=== PATIENT | female | born 1955 | race Caucasian/White ===

== ENCOUNTER 2018-11-16 18:42 | Emergency (ER) | payer BC, OTHER ==
[~2018-11-16] VITALS: Ht 160 cm; Wt 99.8 kg
--- NOTE | 2018-11-16 18:55 | NUR ---
[facility] [facility] is notified of dog bite. Officer is being sent.
[2018-11-16] MEDS ORDERED: AUGMENTIN 875 MG TAB (AMOXICILLIN/CLAVULANATE) PO SCH (19:00)
[2018-11-16] MEDS ORDERED: TRAM50TA2 PO (19:10)
[2018-11-16] MEDS ORDERED: AMOX-358 PO (19:10)
[2018-11-16] MEDS ORDERED: HYDROcodone/APAP 10 MG/325 MG (LORTAB) TAB PO ONE (19:15)
[2018-11-16] MEDS ORDERED: TETANUS,DIPTH,PERTUSS P/F (BOOSTRIX) 0.5 ML VIAL IM ONE (19:30)
[2018-11-16 19:33] VITALS: BP 120/76
--- NOTE | 2018-11-16 19:52 | ED General ---
General Chief Complaint: Bite-Animal/Human/Insect Stated Complaint: DOG BITE ON LT ARM Nursing Triage Note: Patient states that she was at the home of another family member. She walked to the back yard and a great molly, owned by the family member, bit the patient on the left arm. Patient has a laceration that is approximately 5cm long on her anterior left arm. Patient went to urgent care and they sent her here. Nursing Sepsis Screen: No Definite Risk Source of Information: Patient History of Present Illness Date Seen by Provider: November 16, 2018 Time Seen by Provider: 16:48 Initial Comments Patient is a 63-year-old right-handed female presents with dog bite/laceration to left forearm. Patient was bit by her great Molly prior to the arrival. There is 4 cm laceration over the extensor surface of distal left forearm. Wound is full-thickness with exposed adipose tissue. No fascia, vessels or tendons are exposed. Bleeding is controlled. There are 2 puncture wounds on the flexor surface of the forearm. There is no loss of motor strength or sensation. Patient was seen at [facility] and referred to the ED for evaluation. The animal is the patient's pet and rabies needs updated. No other acute symptoms or complaints. Patient's does not recall time of her last tetanus booster. Timing/Duration: 1 Hour Severity: Moderate Associated Systoms: Denies Symptoms Allergies and Home Medications Allergies Coded Allergies: No Known Drug Allergies (Unverified , 11/16/18) Home Medications Amoxicillin/Potassium Clav 1 Each Tablet, 1 EACH PO BID Prescribed by: INDIA PEREIRA on 11/16/181909 Tramadol HCl 50 Mg Tablet, 50 MG PO Q6H Prescribed by: INDIA PEREIRA on 11/16/181909 Patient Home Medication List Home Medication List Reviewed: Yes Review of Systems Review of Systems Constitutional: no symptoms reported, see HPI EENTM: see HPI Respiratory: no symptoms reported, see HPI Cardiovascular: no symptoms reported, see HPI Musculoskeletal: other (CHPI) Skin: no symptoms reported Psychiatric/Neurological: No Symptoms Reported Past Ivjadbi-Cgvsfs-Vnszsc Hx Patient Social History Alcohol Use: Denies Use Recreational Drug Use: No Smoking Status: Never a Smoker 2nd Hand Smoke Exposure: No Recent Foreign Travel: No Contact w/Someone Who Travel: No Recent Infectious Disease Expo: No Recent Hopitalizations: No Physical Abuse: No Sexual Abuse: No Mistreated: No Fear: No Immunizations Up To Date Tetanus Booster (TDap): More than 5yrs Seasonal Allergies Seasonal Allergies: No Past Medical History Surgeries: Yes Section Respiratory: No Cardiac: No Neurological: No Genitourinary: No Gastrointestinal: No Musculoskeletal: No Endocrine: No HEENT: No Cancer: No Psychosocial: No Integumentary: No Blood Disorders: No Physical Exam Vital Signs Vital Signs - First Documented 11/16/18 18:50 Temp 97.9 Pulse 67 Resp 20 B/P (MAP) 120/76 (91) Pulse Ox 95 O2 Delivery Room Air Capillary Refill : Less Than 3 Seconds Height, Weight, BMI Height: 5'3.00" Weight: 220lbs. 0oz. 99.762324hq; BMI Method:Stated General Appearance: No Apparent Distress, WD/WN HEENT: PERRL/EOMI, TMs Normal Neck: Full Range of Motion, Normal Inspection Respiratory: Lungs Clear Back: Other Extremity: Other ( 4 cm laceration over the extensor surface of distal left forearm. Wound is full-thickness with exposed adipose tissue. No fascia, vessels or tendons are exposed. Bleeding is controlled. There are 2, 1 cm puncture wounds on the flexor surface of the forearm) Neurologic/Psychiatric: Alert; No Motor Weakness, No Sensory Deficit Procedures/Interventions Wound Location: Upper Extremities Other Wound Location Left forearm laceration, cleansed extensively under tap water. Wound explored, no foreign bodies present. Wound loosely closed with 4 ruperto. Wound bandaged and placed in sling., Wound Length (cm): 4 Staple Repair: Stapler Skin Precise Progress/Results/Core Measures Suspected Sepsis Recent Fever Within 48 Hours: No Infection Criteria Present: None New/Unexplained Altered Menta: No Sepsis Screen: No Definite Risk SIRS Temperature:97.9 Pulse: 67 Respiratory Rate: 20 Blood Pressure 120 /76 Mean: 91 Results/Orders My Orders Orders - INDIA PEREIRA DO Amoxicillin/Clavulanate Tablet (Augmenti (11/16/18 19:00) Hydrocodone/Apap 10/325 Tablet (Lortab 1 (11/16/18 19:15) Dipht,Pertuss(Acell),Tet Adult (Boostrix (11/16/18 19:30) Medications Given in ED Current Medications Medications Dose Ordered Sig/Jessy Route Start Time Stop Time Status Last Admin Dose Admin Acetaminophen/ Hydrocodone Bitart 1 ea ONCE ONCE PO 11/16/18 19:15 11/16/18 19:16 DC 11/16/18 19:08 1 EA Diphtheria/ Tetanus/Acell Pertussis 0.5 ml ONCE ONCE IM 11/16/18 19:30 11/16/18 19:31 DC 11/16/18 19:32 0.5 ML Vital Signs/I&O 11/16/18 11/16/18 18:50 19:33 Temp 97.9 97.9 Pulse 67 67 Resp 20 20 B/P (MAP) 120/76 (91) 120/76 (91) Pulse Ox 95 95 O2 Delivery Room Air Room Air Capillary Refill : Less Than 3 Seconds Blood Pressure Mean: 91 Departure Impression Primary Impression: Dog bite Disposition: 01 HOME, SELF-CARE Condition: Improved Departure-Patient Inst. Decision time for Depature: 19:30 Patient Instructions: Animal Bites (DC) Add. Discharge Instructions: This take ibuprofen for pain and tramadol as needed for additional relief. Complete full course of antibiotics and keep left arm elevated in a sling. Avoid repetitive left arm use and heavy lifting for at least 1 week. Return to the ED in 10 days for staple removal. Return sooner if signs of infection. All discharge instructions reviewed with patient and/or family. Voiced understanding. Scripts Tramadol HCl (Tramadol HCl) 50 Mg Tablet 50 MG PO Q6H, #12 TAB Prov: INDIA PEREIRA DO 11/16/18 Amoxicillin/Potassium Clav (Augmentin 875-125 Tablet) 1 Each Tablet 1 EACH PO BID, #14 TAB 0 Refills Prov: INDIA PEREIRA DO 11/16/18 Work/School Note: Work Release Form Date Seen in the Emergency Department: November 16, 2018 Return to Work: November 19, 2018 INDIA PEREIRA DO November 16, 2018 19:52
== END 2018-11-16 19:33 | disposition home or self-care (01) ==
LOC: ER FS 18:45
DX: S51.852A Open bite of left forearm, initial encounter (principal); Z98.890 Other specified postprocedural states; Z23 Encounter for immunization; W54.0XXA Bitten by dog, initial encounter
CPT/HCPCS: 12002; 90471; 90715

== ENCOUNTER → 2018-11-26 | Emergency (ER) | payer BC ==
[~2018-11-26] VITALS: Ht 154.9 cm; Wt 99.8 kg
[~2018-11-26] MED LIST: AMOX-358 PO; TRAM50TA2 PO
--- NOTE | 2018-11-26 17:30 | NUR ---
Dr Chavez to room to see dogbite repair site before ruperto removed. Pt has scabbing along one edge that is appearing less healed as the other side. No active drainage, no redness, no red streaks, pt is afebrile, and pt continues to state it is fine and get them out. Dr reports he can do skin adhesive glue to site if it is not as closed and pt refuses. This RN reports going to add steri strips with Mastisol and leave spaces between and pt refuses. Bandaids applied over site after removal.
[2018-11-26 17:45] VITALS: BP 179/89
--- NOTE | 2018-11-26 17:52 | ED Suture Removal/Wound Check ---
Suture/Wound Re-check Suture Removal/Wound Recheck : Suture Removal/Wound Recheck: Gin removed by RN General Appearance: WD/WN, no apparent distress Skin Exam: warm/dry Physical Exam Vital Signs Capillary Refill : General Appearance: WD/WN, no apparent distress Respiratory: no respiratory distress Extremities: other (healing laceration left forearm) Neurologic/Psychiatric: alert, normal mood/affect Skin: warm/dry Skin Problem Location: upper extremities (left forearm) Skin Problem Character: other (dog bite/laceration) Departure Impression Primary Impression: Dog bite Disposition: 01 HOME, SELF-CARE Condition: Improved Departure-Patient Inst. Decision time for Depature: 17:48 Referrals: MIAN CAMPBELL MD (PCP) Primary Care Physician Patient Instructions: STAPLE REMOVAL-UNCOMPLICATED NURIS PALACIOS DO November 26, 2018 17:52
== END | disposition home or self-care (01) ==
LOC: EDUNIT# 17:27 → ER FS 17:29
DX: S51.812D Laceration without foreign body of left forearm, subsequent encounter (principal); W54.0XXD Bitten by dog, subsequent encounter

== ENCOUNTER → 2020-05-01 | Outpatient (CLI) | payer BC ==
[~2020-05-01] MED LIST changes: -TRAM50TA2 PO; +TRM50T PO
--- NOTE | 2020-05-01 10:41 | Diagnostic Imaging Report ---
PROCEDURE: MRI right joint lower extremity without contrast. TECHNIQUE: Multiplanar, multisequence non contrast-enhanced MRI of the right ankle was accomplished. INDICATION: Posterior ankle pain after a fall. COMPARISONS: None available. FINDINGS: TENDONS: Complete rupture of the Achilles tendon at its distal insertion has the proximal stump retracted approximately 5 cm. The tendon gap is filled with fluid and/or hemorrhage. The peroneus longus and brevis tendons are intact. Posterior tibialis, flexor digitorum longus and flexor hallucis longus are normal. Anterior tibialis, extensor hallucis longus and extensor digitorum longus are normal, where visualized. LIGAMENTS: The anterior and posterior distal tibiofibular ligaments are intact. Anterior talofibular, calcaneofibular and posterior talofibular ligaments are normal. Medial deltoid ligamentous complex remains intact. The spring ligament is normal. BONES AND CARTILAGE: No osteochondral lesion of the talar dome. No fracture or stress fracture. The articular cartilage of the tibiotalar and posterior subtalar joints are normal. SOFT TISSUES: No evidence of plantar fasciitis. No abnormal soft tissue scar/fibrosis within the tarsal canal/sinus tarsi or tarsal tunnel. Small ankle joint effusion. A small amount of subcutaneous edema is present around the ankle. IMPRESSION: 1. Complete tear of the distal Achilles has the proximal stump retracted 5 cm. Dictated by: Dictated on workstation # [id number]
== END ==
LOC: RAD 09:30
PROVIDERS: ATTEND Nurse Practitioner
DX: S86.011A Strain of right Achilles tendon, initial encounter (principal); W19.XXXA Unspecified fall, initial encounter
CPT/HCPCS: 73721

== ENCOUNTER 2020-05-04 10:06 | Outpatient (RCR) | payer BC ==
[~2020-05-04] VITALS: Ht 160 cm; Wt 95.5 kg
== END 2020-05-04 11:47 | disposition home or self-care (01) ==
LOC: PREOP 10:06
PROVIDERS: ATTEND Orthopaedic Surgery
DX: Z01.818 Encounter for other preprocedural examination (principal)

== ENCOUNTER 2020-05-06 07:07 | Day surgery (SDC) | payer BC ==
--- NOTE | 2020-05-05 06:03 | HISTORY AND PHYSICAL ---
DATE OF SERVICE: ADMISSION HISTORY AND PHYSICAL This will be for outpatient surgery on 05/06/2020 for right Achilles tendon repair. HISTORY OF PRESENT ILLNESS: The patient is a 64-year-old female, who had had a several week history of progressively worsening right lower extremity pain and swelling. She reports some pain in her heel region and throughout her foot and ankle and then 2 weeks ago, she had an injury when her dog ran and it dragged to the ground, she reported increased pain and swelling at that point. She reports pain and weakness in her ankle. She denies any prior history of similar symptoms. REVIEW OF SYSTEMS: No chest pain, no shortness of breath, no dysuria. PAST MEDICAL HISTORY: None. PAST SURGICAL HISTORY: . SOCIAL HISTORY: Denies alcohol, tobacco use. MEDICATIONS: None. ALLERGIES: No known drug allergies. RADIOGRAPHS: Reveal no acute or chronic changes. PHYSICAL EXAMINATION: GENERAL: The patient is well-developed, well-nourished, in no acute distress. HEENT: Normocephalic, atraumatic. Pupils are equal, round, reactive to light. Oropharynx is clear. NECK: Supple, no lymphadenopathy. LUNGS: Clear to auscultation bilaterally. HEART: Regular rate and rhythm. ABDOMEN: Soft, nontender, nondistended. EXTREMITIES: Right ankle demonstrates diffuse swelling throughout the ankle and foot. There is ecchymosis posteriorly at the musculotendinous junction of the Achilles. She is tender throughout the Achilles with palpable defect. Singh squeeze test showed minimal plantar flexion. There is weakness with plantar flexion actively. IMPRESSION: Right Achilles tendon disruption. PLAN: Right Achilles tendon repair. The risks, benefits, options, ramifications and recovery were discussed at length with the patient. She understands and wishes to proceed. Job ID: [id number] DocumentID: [id number] Dictated Date: 04/27/2020 12:49:04 Security Clerk Date: 04/27/2020 13:50:36 Dictated By: SHERIE GUTIÉRREZ MD
[~2020-05-06] VITALS: Ht 160 cm; Wt 95.5 kg
[2020-05-06] VITALS (9 sets, daily range): BP systolic 148–180; BP diastolic 70–95
[2020-05-06] MEDS ORDERED: ceFAZolin INJECTION 1,000 MG in WATER (STERILE) FOR INJECTION 10 ML IV ONE (07:30)
[2020-05-06] MEDS ORDERED: oxyCODONE/APAP 5/325MG (PERCOCET 5) TABLET PO PRN (07:30)
[2020-05-06] MEDS ORDERED: BUPIVACAINE 0.5% 30 ML (SENSORCAINE) VIAL ONE (07:35)
--- NOTE | 2020-05-06 07:38 | Progress Note-Pre Operative ---
Pre-Operative Progress Note H&P Reviewed The H&P was reviewed, patient examined and no changes noted. Date Seen by Provider: May 06, 2020 Time Seen by Provider: 07:38 Date H&P Reviewed: May 06, 2020 Time H&P Reviewed: 07:38 Pre-Operative Diagnosis: right Kasandra's tendon tear SHERIE GUTIÉRREZ MD May 06, 2020 07:38
--- NOTE | 2020-05-06 07:39 | Progress Note-Post Operative ---
Post-Operative Progess Note Surgeon (s)/Spark Tester (s) Surgeon SHERIE GUTIÉRREZ MD Spark Tester: Raghavendra Romero Pre-Operative Diagnosis right Kasandra's tendon tear Post-Operative Diagnosis right Kasandra's tendon tear Procedure & Operative Findings Date of Procedure 05/06/20 Procedure Performed/Findings right [place]'s tendon repair Anesthesia Type GETA Estimated Blood Loss Estimated blood loss (mL): minimal Specimens/Packing Specimens Removed none Packing: none SHERIE GUTIÉRREZ MD May 06, 2020 07:39
[2020-05-06] MEDS ORDERED: proPOfol 200 MG/20 ML (DIPRIVAN) VIAL IV ONE (07:40)
[2020-05-06] MEDS ORDERED: SEVOFLURANE (ULTANE) 15 ML INHAL SOLN ONE ×5 (07:40→09:35)
[2020-05-06] MEDS ORDERED: LIDOCAINE PF 2% 5 ML (XYLOCAINE) VIAL ONE (07:40)
[2020-05-06] MEDS ORDERED: ONDANSETRON 4 MG/2 ML (SDV) Z0FRAN ONE (07:40)
[2020-05-06] MEDS ORDERED: MIDAZOLAM 2 MG/2 ML (VERSED) VIAL ONE (07:41)
[2020-05-06] MEDS ORDERED: fentaNYL INJECTION 100 MCG/2 ML AMP ONE (07:41)
[2020-05-06] MEDS: LACTATED RINGERS 1,000 ML IV PRN ×2 (07:51→08:43)
[2020-05-06] MEDS ORDERED: ROCURONIUM 10 MG/ML 5 ML SYRINGE IV ONE (09:28)
[2020-05-06] MEDS ORDERED: HYDROmorphone 2 MG/ML VIAL (DILAUDID) ONE (09:51)
[2020-05-06] MEDS ORDERED: ONDANSETRON 4 MG/2 ML (SDV) Z0FRAN IVP PRN (10:00)
[2020-05-06] MEDS ORDERED: HYDROmorphone 2 MG/ML VIAL (DILAUDID) IV ONE (10:00)
[2020-05-06] MEDS ORDERED: ASPIRIN E.C. 81 MG (ECOTRIN) TAB PO ONE (10:45)
[2020-05-06] MEDS ORDERED: OXYC-471 PO (10:55)
--- NOTE | 2020-05-06 12:51 | OPERATIVE REPORT ---
DATE OF SERVICE: 05/06/2020 PREOPERATIVE DIAGNOSIS: Right Achilles tendon tear. POSTOPERATIVE DIAGNOSIS: Right Achilles tendon tear. PROCEDURE PERFORMED: Right Achilles tendon repair. SURGEON: Tez Gutiérrez MD. REGULATOR ASSEMBLER: Raghavendra Romero, who assisted throughout the procedure and closed the incision. ANESTHESIA: General endotracheal by Kole Tovar CRNA. TOURNIQUET TIME: 41 minutes at 300 mmHg. ESTIMATED BLOOD LOSS: Minimal. DRAINS: None. COMPLICATIONS: None. POSTOPERATIVE PLAN: Crutch ambulation for four weeks with conversion to boot in two weeks and boot ambulation until week #7 postop. STATEMENT OF MEDICAL NECESSITY: The patient is a 64-year-old female, who injured her right ankle felt and heard a pop and since then had weakness. An MRI was obtained, which revealed an avulsion of the distal aspect of the Achilles insertion. She had continued posterior ankle pain. Due to functional impairment and failure to improve with conservative measures, the patient elected to proceed with surgical intervention. DESCRIPTION OF PROCEDURE: After the risks and benefits of the procedure were discussed and questions were answered, informed consent was signed and placed on chart, the operative site was confirmed in the preoperative holding area initialed by the surgeon. The patient was then transferred to the operating room. After adequate levels of general endotracheal anesthetic were obtained, a timeout was called, confirming the operative site. The patient was carefully placed in the prone position, being careful to pad all bony prominences. The right lower extremity was prepped and draped in the usual sterile fashion. With the leg elevated, the tourniquet was inflated to 300 mmHg. An incision was made posterolaterally along the Achilles. The underlying soft tissues were carefully exposed. The stump of the tear was identified and it was found that there was approximately 1 cm left on the insertion site. Therefore, this was considered more of an avulsion type injury. An [employer] SpeedBridge system was used to repair the Achilles. This was done in a standard fashion with four anchors into the Achilles that were carefully tapped. In addition to this, the FiberWire suture arms were used to create a locking [place] configuration leaving four arms that went from distal to proximal and then back on themselves. These were then crisscrossed as well for SpeedBridge type repair. An excellent repair was obtained. The Achilles was brought to the calcaneal insertion. The ankle was then approximately 20 degrees of plantarflexion, but could be brought to neutral with a stable repair. The wound was copiously irrigated. The tourniquet was deflated. A 3-0 Vicryl was used to reapproximate the subcutaneous tissue and skin was closed with 4-0 nylon in a vertical mattress interrupted fashion. No retractors were used on the skin during the procedure and the skin flaps were full thickness with minimal dissection carried out subcutaneously in order to not violate the skin edges. After the wound closure, the incision was infiltrated with plain Marcaine and soft dressing and posterior splint were applied and the patient was transferred to the recovery room awake and in stable condition. Job ID: [id number] DocumentID: [id number] Dictated Date: 05/06/2020 09:58:27 Experience Design Director Date: 05/06/2020 12:50:50 Dictated By: TEZ GUTIÉRREZ MD
--- NOTE | 2020-05-06 13:02 | Physical Therapy Ortho Eval ---
PT Orthopedic Evaluation Type of Surgery right achilles tendon repair Prior Level of Function Current Living Status: Spouse Subjective Subjective Patient sitting EOB pre tx, agrees to PT, has no complaints of pain. Patient is able to wiggle her toes on the right side (she has a cast on), and she has normal capillary refill. Patient has no complaints of dizziness or light headedness. Patient states she has 5 steps to enter her home and a very steep ramp. Patient is not going to be able to go up 5 steps into her home without 2 strong people on each side of her that she will be able to bear her weight on so she can hop up the steps because she is only TTWB on the right side. Explained to patient she would be better off finding a WC so somebody can push her up the ramp and into her home. Motor Control Motor Control: Motor Control WNL Transfer SCALE: Activities may be completed with or without assistive devices. 0-Hwzlpyzzvg-tsdrfwb completes the activity by him/herself with no assistance from a helper. 5-Set-up or Clean-up Assistance-helper sets up or cleans up; patient completes activity. [place] assists only prior to or following the activity. 4-Supervision or Touching Assistance-helper provides verbal cues and/or touching/steadying and/or contact guard assistance as patient completes activity. Assistance may be provided throughout the activity or intermittently. 3-Partial/Moderate Assistance-helper does LESS THAN HALF the effort. [place] lifts, holds or supports trunk or limbs, but provides less than half the effort. 2-Substantial/Maximal Assistance-helper does MORE THAN HALF the effort. [place] lifts or holds trunk or limbs and provides more than half the effort. 5-Rlzkcomwe-xbbbug does ALL the effort. Patient does none of the effort to complete the activity. Or, the assistance of 2 or more helpers is required for the patient to complete the activity. If activity was not attempted, code reason: 7-Patient Refused. 9-Not Applicable-not attempted and the patient did not perform the activity before the current illness, exacerbation or injury. 10-Not Attempted due to Environmental Limitations-(lack of equipment, weather restraints, etc.). 88-Not Attempted due to Medical Conditions or Safety Concerns. Transfers (B, C, W/C) (QC): 4 Gait Right Lower Extremity: Right Weight Bearing Status RLE: Touch Toe Bearing Left Lower Extremity: Left Weight Bearing Status LLE: Full Weight Bearing Summary/Comments Patient ambulated 30' to the restroom, used the restroom with her family to help, and ambulated 30' back to her bed. Patient has slow ambulation, slightly unsteady, is compliant with her weight bearing status, cannot clear the floor enough to go up stairs. Treatment Rendered Treatment: Therapeutic Exercises, Gait Train Exercise Instruction: Quad Sets, Heel Slides Assessment/Goals Goal Time Frame: 1 Visit Understands HEP: Yes Safe Ambulation: Yes Plan Treatment Plan: Discharge PT/Family Agrees to Plan: Yes Time Time In: 1147 Time Out: 1205 Total Billed Treatment Time: 18 Billed Treatment Time 1 visit EVL 18' DOMO ODOM PT May 06, 2020 13:02
--- NOTE | 2020-05-06 14:28 | Anesthesia-General Post-Op ---
General Patient Condition Mental Status/LOC: Same as Preop Cardiovascular: Satisfactory Nausea/Vomiting: Absent Respiratory: Satisfactory Pain: Controlled Complications: Absent Post Op Complications Complications None Follow Up Care/Instructions Patient Instructions None needed. Anesthesia/Patient Condition Patient Condition Patient is doing well, no complaints, stable vital signs, no apparent adverse anesthesia problems. No complications reported per nursing. D/C home per [facility] [place] [facility] Criteria: Yes JULIO TELLEZ CRNA May 06, 2020 14:28
[2020-05-07] MEDS ORDERED: ASPIRIN E.C. 81 MG (ECOTRIN) TAB PO SCH (09:00)
== END 2020-05-06 12:15 | disposition home or self-care (01) ==
LOC: SDC 07:07
PROVIDERS: ATTEND Orthopaedic Surgery
DX: S86.011A Strain of right Achilles tendon, initial encounter (principal); Z72.0 Tobacco use; Z20.828 Contact with and (suspected) exposure to other viral communicable diseases
CPT/HCPCS: 27652; 87081; 97161; C1713; U0002; 87635

== ENCOUNTER → 2022-02-17 | Outpatient (CLI) | payer BC ==
[~2022-02-17] MED LIST changes: +OXYC1TAB11 PO
--- NOTE | 2022-02-18 15:32 | Diagnostic Imaging Report ---
PROCEDURE: MR imaging cervical spine without contrast. TECHNIQUE: Multiplanar, multisequence MR imaging of the cervical spine was performed without contrast. INDICATION: Numbness in both hands. COMPARISON: None available. FINDINGS: Straightening of the cervical spine without spondylolisthesis. No fracture or concerning marrow replacing process. Cervical cord maintains normal size and signal. No extradural fluid collection. Paravertebral musculature is normal. No cervical lymphadenopathy. Airway is widely patent. C2-C3: No spinal canal or neuroforaminal stenosis. C3-C4: Small central disc protrusion causes mild spinal canal stenosis. Left neuroforaminal stenosis due to uncovertebral joint and facet arthritis. C4-C5: Uncovertebral joint hypertrophy and facet osteoarthritis result in severe neuroforaminal stenosis on the left. No spinal canal stenosis. C5-C6: Moderate-sized central disc osteophyte complex effaces the ventral thecal sac. There is mild ligamentum flavum hypertrophy effacing the posterior thecal sac. Overall, there is moderate central canal stenosis. Severe right and mild left neuroforaminal stenosis. C6-C7: Moderate central and left paracentral disc osteophyte complex causes moderate spinal canal stenosis. Severe left neuroforaminal stenosis. C6-C7: No spinal canal or neuroforaminal stenosis. IMPRESSION: 1. Moderate central canal stenosis at C5-C6 and C6-C7 due to moderate posterior disc osteophyte complexes. 2. Multilevel severe neuroforaminal stenosis. Dictated by: Dictated on workstation # [id number]
== END ==
LOC: RAD 12:42
PROVIDERS: ATTEND Family Medicine
DX: M48.02 Spinal stenosis, cervical region (principal); M25.78 Osteophyte, vertebrae
CPT/HCPCS: 72141